=== PATIENT | female | born 1950 | race Caucasian/White ===

== ENCOUNTER 2022-11-14 09:14 | Outpatient (CLI) | payer MEDICARE, SELFPAY ==
--- NOTE | 2022-11-14 09:30 | MM_ITS ---
WS: [id number] VIEWS: MLO and CC views both breasts. 3D digital tomosynthesis is also included in this exam. Comparison made with prior exam of 04/08/2006, 12/31/2008, 08/22/2010, 02/08/2014. Findings: There was no sign of mass, architectural distortion or suspicious calcification in either breast. Th ere are areas of scattered fibroglandular density MM/[id number] Impression: BI-RADS: 2-Benign finding. FOLLOW-UP: 1 Year Follow-up This mammogram was also analyzed by the Computer Aided Detection System [employer].
== END 2022-11-14 09:15 | disposition home or self-care (01) ==
PROVIDERS: PCP Nurse Practitioner Family; Visit Provider Family Medicine
DX: Z12.31 Encounter for screening mammogram for malignant neoplasm of breast (principal)
CPT/HCPCS: 77063; 77067

== ENCOUNTER → 2023-01-29 13:46 | Outpatient (BNVA) | payer MEDICARE, OTHER, SELFPAY | PROVIDERS: PCP Nurse Practitioner Family; Visit Provider Podiatrist Foot & Ankle Surgery | DX: L60.0 Ingrowing nail (principal); E11.9 Type 2 diabetes mellitus without complications | CPT/HCPCS: 99203 ==